=== PATIENT | female | born 1960 | race Caucasian/White ===

== ENCOUNTER 2018-06-17 10:00 | Day surgery (SDC) | payer BC ==
[2018-06-17] MEDS ORDERED: PROPOFOL 500 MG/50 ML EMU IV ONE (11:09)
[2018-06-17 12:27] VITALS: BP 133/88; PULSE 84; RESP 14; TEMP 98.4; O2SAT 97
== END 2018-06-17 12:13 | disposition home or self-care (01) ==
LOC: SURG 10:00
PROVIDERS: ATTEND Surgery
DX: Z12.11 Encounter for screening for malignant neoplasm of colon (principal)
CPT/HCPCS: J2704